=== PATIENT | female | born 1990 | race African-American/Black ===

== ENCOUNTER 2019-05-11 01:00 | Emergency (ER) | payer OTHER ==
[~2019-05-11] VITALS: Ht 170.2 cm; Wt 59.0 kg
[~2019-05-11 01:00] MED LIST: ACETAMINOPHEN-1 EAC1 PO; CEPHALEXIN250 MG PO; IRON325 PO; KEFLEX500 MG PO; MACROBID 100 M100 M1 PO; NORCO 5-325 TA1 EACH; NORCO 5-325 TA1 EACH PO; ONDANSETRON HCL4 M2; PRENA1 SOFTGEL1 EACH PO
[2019-05-11] MEDS ORDERED: NOHOMEMEDICATIONS (02:38)
[2019-05-11] MEDS ORDERED: TRAMADOL 50 MG50 MG PO (02:46)
[2019-05-11] MEDS ORDERED: NAPROSYN500 MG PO (02:46)
[2019-05-11 03:00] VITALS: BP 110/67
== END 2019-05-11 03:02 | disposition home or self-care (01) ==
LOC: ER 01:00
DX: J03.90 Acute tonsillitis, unspecified (principal); F17.210 Nicotine dependence, cigarettes, uncomplicated

== ENCOUNTER 2019-09-01 11:50 | Emergency (ER) | payer OTHER ==
[~2019-09-01] VITALS: Ht 172.7 cm; Wt 68.0 kg
[~2019-09-01 11:50] MED LIST changes: +NAPROSYN500 MG PO; +NOHOMEMEDICATIONS; +TRAMADOL 50 MG50 MG PO
[2019-09-01 13:09] LABS: ABSOLUTE NEUTROPHILS 5.7 thou/uL (1.4-8.2); BASOPHILS 0.6 % (0.0-2.0); EOSINOPHILS 0.2 % (0.0-3.0); HEMATOCRIT 37.5 % (37.0-47.0); HEMOGLOBIN 12.2 gm/dL (12.0-15.0); MCH 28.6 pg (26.0-34.0); MCHC 32.7 g/dL (28.0-37.0); MCV 87.6 fL (80.0-100.0); MONOCYTES 6.5 % (1.0-8.0); PLATELET COUNT 253 thou/uL (150-400); POLYS 68.7 % (36.0-66.0); RBC 4.28 mil/uL (4.20-5.00); RDW 12.9 % (10.5-14.5); WBC 8.2 thou/uL (4.0-11.0)
[2019-09-01 13:11] LABS: CALCIUM 9.3 mg/dL (8.5-10.1); CREATININE 0.6 mg/dL (0.6-1.0); POTASSIUM 3.3 mmol/L (3.5-5.1)
[2019-09-01 15:41] VITALS: BP 113/68
== END 2019-09-01 15:43 | disposition home or self-care (01) ==
LOC: ER 11:50
PROVIDERS: Nurse Practitioner
DX: O46.92 Antepartum hemorrhage, unspecified, second trimester (principal)